=== PATIENT | male | born 1995 | race Caucasian/White ===

== ENCOUNTER 2016-12-26 21:33 | Emergency (ER) | payer OTHER ==
[2016-12-26 21:40] VITALS: BP 126/74; PULSE 64; RESP 18; TEMP 97.5; O2SAT 96
--- NOTE | 2016-12-26 22:17 | EDPHY ---
H & P Stated Complaint: SORE THROAT AND LYMPH NODES X3 DAYS Time Seen by Provider: 12/26/16 21:50 HPI/ROS: Chief complaint: Sore throat History of present illness: This is a 21-year-old male who presents to the emergency department for a sore throat. Patient reports the onset of symptoms over the last few days. He states his throat feels swollen. He has also had associated fevers. He denies other associated signs or symptoms including no cough, no trouble breathing, no rash. He states multiple people around him have a strep throat including a person he has kissed. - Personal History Current Tetanus/Diphtheria Vaccine: Yes - Medical/Surgical History Hx Asthma: Yes Hx Chronic Respiratory Disease: No Hx Diabetes: No Hx Cardiac Disease: No Hx Renal Disease: No Hx Cirrhosis: No Hx Alcoholism: No Hx HIV/AIDS: No Hx Splenectomy or Spleen Trauma: No Other PMH: asthma. facial and ankle surgery - Social History Smoking Status: Light smoker - Physical Exam Exam: General Appearance: Alert, nontoxic . Eyes: Pupils equal and round no injection. ENT: Tympanic membranes, external auditory canals, external ears and surrounding soft tissue including over the mastoids are unremarkable. Nasopharynx is not injected. There is no rhinorrhea. Oropharynx is injected. There is nmild edema. There is no exudate. There is no asymmetry. The uvula is midline. No elevation of the tongue. There is no hoarseness, no drooling, no trismus, no stridor. Respiratory: Chest is non tender, lungs are clear to auscultation. Cardiac: regular rate and rhythm Musculoskeletal: Neck is supple and non tender. Extremities have full range of motion and are non tender. Skin: No rashes or lesions. Neurological: Alert and oriented x4. No meningismus. Constitutional: Initial Vital Signs Temperature (C) 36.4 C 12/26/16 21:38 Heart Rate 64 12/26/16 21:38 Respiratory Rate 18 12/26/16 21:38 Blood Pressure 126/74 H 12/26/16 21:38 O2 Sat (%) 96 12/26/16 21:38 O2 Delivery Mode Room Air Allergies/Adverse Reactions: No Known Allergies Allergy (Unverified 12/26/16 21:38) Home Medications: Medication Instructions Recorded Doxycycline/Skin Cleanser #19 12/02/14 AMOXICILLIN TRIHYDRATE [Amoxil] 875 mg PO BID 10 Days 12/26/16 Medical Decision Making ED Course/Re-evaluation: Patient seen under the supervision of my primary supervising physician Dr. Florecita Pinto. Patient presents to the emergency department for sore throat. He is nontoxic. He has had extensive exposure to strep throat. I believe it prudent to prophylactically treat him with antibiotics given this exposure. There is no evidence of complications such as abscess formation or meningitis. Patient is discharged home. Home care is discussed. He is asked to follow up with a primary care doctor for recheck. Return precautions are given. Patient voiced understanding and agreement with plan. Differential Diagnosis: Included but not limited to pharyngitis, strep pharyngitis, tonsillitis, abscess formation - Data Points Laboratory Results: 12/26/16 21:50 Group A Strep Screen Cancelled Medications Given: Discontinued Medications Amoxicillin (Amoxicillin) 500 mg PO EDNOW ONE PRN Reason: Protocol Stop: 12/26/16 22:18 Last Admin: 12/26/16 22:23 Dose: 500 mg Departure - Departure Disposition: Home, Routine, Self-Care Clinical Impression: Acute streptococcal pharyngitis Condition: Good Instructions: Strep Throat (ED) Additional Instructions: Follow-up with a primary care doctor for recheck Use ibuprofen 600 mg 3 times a day for the next 2-3 days If symptoms worsen or new symptoms develop return to the emergency room for recheck Referrals: DR DIGNA [Other] - As per Instructions Prescriptions: AMOXICILLIN TRIHYDRATE [Amoxil] 875 mg PO BID 10 Days
== END 2016-12-26 22:25 | disposition home or self-care (01) ==
DX: J02.0 Streptococcal pharyngitis (principal); J45.909 Unspecified asthma, uncomplicated; F17.200 Nicotine dependence, unspecified, uncomplicated